=== PATIENT | male | born 1960 | race Caucasian/White ===

== ENCOUNTER 2020-11-25 22:35 | Emergency (ER) | payer MEDICAID ==
[~2020-11-25 22:35] MED LIST: NOCURR
== END 2020-11-26 00:10 | disposition left against medical advice (07) ==
LOC: EMS 22:37
DX: R10.9 Unspecified abdominal pain (principal); Z53.21 Procedure and treatment not carried out due to patient leaving prior to being seen by health care provider
CPT/HCPCS: 93005